=== PATIENT | male | born 1990 | race Caucasian/White ===

== ENCOUNTER 2020-11-25 14:52 | Emergency (ER) | payer OTHER ==
[~2020-11-25] VITALS: Ht 188 cm; Wt 108.9 kg
[2020-11-25 15:06] VITALS: BP 137/64
--- NOTE | 2020-11-25 15:16 | NUR ---
PT AMBULATED TO BED 6.
--- NOTE | 2020-11-25 15:18 | NUR ---
Patient ambulated to restroom with steady/even gait for urine sample.
--- NOTE | 2020-11-25 15:20 | NUR ---
EMT at bedside for EKG.
--- NOTE | 2020-11-25 15:35 | NUR ---
30 y/o M brought in by self from home with c/c chest pain x 3 hours. Patient states he drank 10 beers yesterday, and today at 1300, was watching TV when he began experiencing an acute onset of chest pain to his left pectoral region; pt rates pain initially at 10/10, burning/constant, non-radiating pain. Patient states he took 325 ASA 2 hours prior to arrival with relief. Upon assessment, patient denies any chest pain at this time; states it resolved on it's own. Pt denies N/V/D, abdominal pain, fever/chills, headache, dizziness, weakness, fatigue, cough, cold-like symptoms. Patient placed onto shelter monitor; EMT at bedside for EKG. Bed locked in lowest position, side rails x 1, call light in reach. PMH/Sx/Meds: Denies CARRIE
--- NOTE | 2020-11-25 15:48 | NUR ---
Patient is requesting to leave AMA; denies any medical complaints at this time.
--- NOTE | 2020-11-25 15:49 | NUR ---
PA made aware and is evaluating patient at bedside.
[2020-11-25 15:56] VITALS: BP 137/64
--- NOTE | 2020-11-25 15:56 | NUR ---
Patient discharged with v/s stable. Written and verbal after care instructions given and explained. Patient verbalized understanding. Ambulatory with steady gait. All questions addressed prior to discharge. Advised to follow up with PMD.
== END 2020-11-25 15:56 | disposition home or self-care (01) ==
LOC: MED 14:52 → EDBD 14:52 → MED 15:56
DX: F10.239 Alcohol dependence with withdrawal, unspecified (principal); R07.89 Other chest pain
CPT/HCPCS: 93005; 99283

== ENCOUNTER 2020-12-22 18:08 | Emergency (ER) | payer OTHER ==
[~2020-12-22] VITALS: Ht 188 cm; Wt 108.9 kg
[2020-12-22 18:14] VITALS: BP 146/116
--- NOTE | 2020-12-22 18:19 | NUR ---
AMBULATED TO BED 9
--- NOTE | 2020-12-22 18:24 | NUR ---
30/M PRESENTS TO ED WITH C/O HEADACHE X1 HOUR. PATIENT STATES HE WAS WATCHING TV WHEN THE HEADACHE STARTED, STATED HE TOOK ASPIRIN 1 HOUR AGO WITH MINIMAL RELIEF. PATIENT STATES HE TOOK METH YESTERDAY AND FEELS LIKE THE PAIN MIGHT BE RELATED TO IT. PATIENT IS ALERT AND ORIENTED X4, ANSWERING QUESTIONS APPROPRIATELY. PATIENT APPEARS ANXIOUS AND NERVOUS.
[2020-12-22] MEDS ORDERED: KETOROLAC 30 MG/ML VIAL IM ONE (18:25)
[2020-12-22] MEDS: NACL 0.9% 1,000 ML IV ONE (18:44)
[2020-12-22] MEDS: METOCLOPRAMIDE 10 MG/2 ML INJ VIAL IVP ONE (18:47)
--- NOTE | 2020-12-22 18:58 | NUR ---
PATIENT TAKEN TO CT VIA W/C
--- NOTE | 2020-12-22 19:15 | NUR ---
RECIVED REPORT FROM STACY PATHAK, CONTINUATION OF CARE. PATIENT A&O X4. PATIENT STATES," I FEEL A LOT BETTER, IT MIGHT HAVE JUST BEEN THE DRUGS." PATIENT STATES UNABLE TO PROVIDE UA SAMPLE AT THIS TIME. IV NO LONGER PATIENT. NO BLOOD RETURN NOTED. PATIENT DENIES PAIN AT THIS TIME. AWATING CT RESULTS.
[2020-12-22 19:41] LABS: BASOPHILS # (AUTO) 0.1 K/uL (0.00-0.22); BASOPHILS % (AUTO) 0.9 % (0.0-2.0); EOSINOPHILS # (AUTO) 0.2 K/uL (0-0.4); HEMATOCRIT 44.4 % (36-52); HEMOGLOBIN 14.9 g/dL (12.0-18.0); LYMPHOCYTES # (AUTO) 1.9 K/uL (2.0-11.5); LYMPHOCYTES % (AUTO) 22.7 % (20.5-51.1); MEAN CORPUSCULAR HEMOGLOBIN 31 pg (27-31); MEAN CORPUSCULAR HGB CONC 34 g/dL (33-37); MEAN CORPUSCULAR VOLUME 92.2 fL (80-94); MONOCYTES # (AUTO) 0.8 K/uL (0.8-1.0); MONOCYTES % (AUTO) 9.3 % (1.7-9.3); NEUTROPHILS # (AUTO) 5.5 K/uL (1.8-7.7); NEUTROPHILS % (AUTO) 65.1 % (42.2-75.2); PLATELET COUNT (AUTO) 256 K/uL (140-450); RED BLOOD CELL COUNT(AUTO) 4.81 MIL/uL (4.20-6.10); RED CELL DISTRIBUTION WIDTH 12.9 % (11.6-13.7); WHITE BLOOD COUNT (AUTO) 8.5 K/uL (4.8-10.8)
--- NOTE | 2020-12-22 19:50 | NUR ---
PATIENT AMBUALTED FROM RESTROOM TO BED WITH STEADY GAIT. UA SAMPLE COLLECTED AND GIVEN TO GLASS MELT OPERATOR JENNIFER.
[2020-12-22 20:00] LABS: ALBUMIN 4.2 g/dL (3.4-5.0); ANION GAP 12.4 (8-16); CARBON DIOXIDE 29.3 mmol/L (21-32); POTASSIUM 3.7 mmol/L (3.5-5.1); TOTAL BILIRUBIN 0.6 mg/dL (0.0-1.0)
--- NOTE | 2020-12-22 20:00 | NUR ---
IV removed, catheter intact and site benign. Applied folded 4x4 gauze and tape to stop bleeding.
--- NOTE | 2020-12-22 20:25 | NUR ---
Patient appears to be resting comfortably in bed. Vital Signs within normal limits. Respirations even and unlabored. Patient states, "I feel better now I think I was just anxious before." No pain at IV site.
[2020-12-22 20:31] LABS: BARBITURATE, URINE NEGATIVE ng/ml (NEG <=200); BENZODIAZEPINE, URINE NEGATIVE ng/mL (NEG <=200); CANNABINOID, URINE NEGATIVE ng/mL (NEG <=50); COCAINE, URINE NEGATIVE ng/mL (NEG <=300); OPIATE, URINE NEGATIVE ng/mL (NEG <=2000); PHENCYCLIDINE SCREEN,URINE NEGATIVE ng/mL (NEG <=25)
--- NOTE | 2020-12-22 21:00 | NUR ---
Haley suazo in ED - 12/22/20 at 2117 by [email or web address] IV removed, catheter intact and site benign. Applied folded 4x4 gauze and tape to stop bleeding.
[2020-12-22 21:02] VITALS: BP 138/76
== END 2020-12-22 21:02 | disposition home or self-care (01) ==
LOC: MED 18:08
DX: R51.9 Headache, unspecified (principal); R07.9 Chest pain, unspecified; R74.01 Elevation of levels of liver transaminase levels; F10.10 Alcohol abuse, uncomplicated; F15.90 Other stimulant use, unspecified, uncomplicated
CPT/HCPCS: 36415; 70450; 80053; 80305; 84484; 85025; 93005; 96361; 96374; 99285; J2765; J7030; J1885

== ENCOUNTER 2021-06-03 17:48 | Emergency (ER) | payer OTHER ==
[~2021-06-03] VITALS: Ht 188 cm; Wt 104.3 kg
[2021-06-03 17:52] VITALS: BP 149/70
--- NOTE | 2021-06-03 18:00 | NUR ---
PT AMBULATED TO BED 11.
--- NOTE | 2021-06-03 18:10 | NUR ---
31 Y/O MALE C/O INTERMITENT LLQ ABDOMINAL PAIN X 4 DAYS. PT DENIES NAUSEA/VOMITING/DIAHHREA. PT REPORTS THAT PAIN IS WORSE AFTER EATING AND WHEN LAYING DOWN. PT REPORTS THIS HAPPENED X7 MONTHS AGO AND WAS DIAGNOSED WITH GASTRITIS. PT A/O X4 WITH EVEN AND UNLABORED RESPIRATIONS. PMH: DENIES NKDA
--- NOTE | 2021-06-03 18:14 | NUR ---
DR QUINN AT BEDSIDE EVALUATING PT
[2021-06-03] MEDS ORDERED: DICYCLOMINE HCL LIQUID 20 MG, ALUMINUM HYD/MAG/SIMETHICONE 30 ML, LIDOCAINE VISCOUS 2% ... PO ONE ×3 (18:20)
[2021-06-03] MEDS ORDERED: DICYCLOMINE HCL LIQUID 10 MG/5 ML UDC ONE (18:21)
[2021-06-03] MEDS ORDERED: ALUMINUM HYD/MAG/SIMETHICONE 30 ML UDC ONE (18:21)
--- NOTE | 2021-06-03 18:29 | NUR ---
LAB AT BEDSIDE
[2021-06-03 18:37] LABS: BASOPHILS # (AUTO) 0.1 K/uL (0.00-0.22); BASOPHILS % (AUTO) 0.8 % (0.0-2.0); EOSINOPHILS # (AUTO) 0.5 K/uL (0-0.4); EOSINOPHILS % (AUTO) 5.7 % (0.0-4.0); HEMOGLOBIN 16.1 g/dL (12.0-18.0); LYMPHOCYTES # (AUTO) 2.1 K/uL (2.0-11.5); LYMPHOCYTES % (AUTO) 23.5 % (20.5-51.1); MEAN CORPUSCULAR HEMOGLOBIN 32 pg (27-31); MEAN CORPUSCULAR HGB CONC 34 g/dL (33-37); MEAN CORPUSCULAR VOLUME 94.9 fL (80-94); MONOCYTES # (AUTO) 0.7 K/uL (0.8-1.0); MONOCYTES % (AUTO) 7.7 % (1.7-9.3); NEUTROPHILS # (AUTO) 5.7 K/uL (1.8-7.7); NEUTROPHILS % (AUTO) 62.3 % (42.2-75.2); PLATELET COUNT (AUTO) 259 K/uL (140-450); RED BLOOD CELL COUNT(AUTO) 5.06 MIL/uL (4.20-6.10); RED CELL DISTRIBUTION WIDTH 12.8 % (11.6-13.7); WHITE BLOOD COUNT (AUTO) 9.1 K/uL (4.8-10.8)
[2021-06-03 18:58] LABS: ANION GAP 11.7 (8-16); CREATININE 1.1 mg/dL (0.6-1.3); POTASSIUM 3.7 mmol/L (3.5-5.1); TOTAL BILIRUBIN 0.3 mg/dL (0.0-1.0)
--- NOTE | 2021-06-03 19:14 | NUR ---
RECEIVED REPORT FROM DELIO FOR CONTINUITY OF CARE
--- NOTE | 2021-06-03 19:14 | NUR ---
REPORT GIVEN TO CASSIDY RN, TRANSFER OF CARE AT THIS TIME
[2021-06-03] MEDS ORDERED: SUCR1TAB35 PO (19:22)
[2021-06-03] MEDS ORDERED: OMEP20EC11 PO (19:22)
[2021-06-03 19:39] VITALS: BP 149/70
--- NOTE | 2021-06-03 19:39 | NUR ---
Patient discharged with v/s stable. Written and verbal after care instructions given and explained. Patient alert, oriented and verbalized understanding of instructions. Ambulatory with steady gait. All questions addressed prior to discharge. ID band removed. Patient advised to follow up with PMD. Rx of Prilosec and carafate given. Patient educated on indication of medication including possible reaction and side effects. Opportunity to ask questions provided and answered.
== END 2021-06-03 19:39 | disposition home or self-care (01) ==
LOC: MED 17:48
DX: R10.9 Unspecified abdominal pain (principal); Z79.899 Other long term (current) drug therapy
CPT/HCPCS: 36415; 80053; 81002; 83690; 85025; 99283

== ENCOUNTER 2021-06-19 08:47 | Emergency (ER) | payer OTHER ==
[~2021-06-19] VITALS: Ht 188 cm; Wt 109.3 kg
[~2021-06-19 08:47] MED LIST: OMEP20EC11 PO; SUCR1TAB35 PO
[2021-06-19 08:54] VITALS: BP 117/87
[2021-06-19] MEDS ORDERED: ONDANSETRON 4 MG ODT PO ONE (09:20)
[2021-06-19] MEDS ORDERED: KETOROLAC 30 MG/ML VIAL IM ONE (09:20)
[2021-06-19 09:53] LABS: BASOPHILS # (AUTO) 0.1 K/uL (0.00-0.22); BASOPHILS % (AUTO) 1.2 % (0.0-2.0); EOSINOPHILS # (AUTO) 0.3 K/uL (0-0.4); EOSINOPHILS % (AUTO) 5.9 % (0.0-4.0); HEMOGLOBIN 15.4 g/dL (12.0-18.0); LYMPHOCYTES # (AUTO) 1.4 K/uL (2.0-11.5); LYMPHOCYTES % (AUTO) 30.6 % (20.5-51.1); MEAN CORPUSCULAR HEMOGLOBIN 32 pg (27-31); MEAN CORPUSCULAR HGB CONC 34 g/dL (33-37); MEAN CORPUSCULAR VOLUME 93.2 fL (80-94); MONOCYTES # (AUTO) 0.3 K/uL (0.8-1.0); MONOCYTES % (AUTO) 6.5 % (1.7-9.3); NEUTROPHILS # (AUTO) 2.6 K/uL (1.8-7.7); NEUTROPHILS % (AUTO) 55.8 % (42.2-75.2); PLATELET COUNT (AUTO) 247 K/uL (140-450); RED BLOOD CELL COUNT(AUTO) 4.83 MIL/uL (4.20-6.10); RED CELL DISTRIBUTION WIDTH 12.8 % (11.6-13.7); WHITE BLOOD COUNT (AUTO) 4.7 K/uL (4.8-10.8)
[2021-06-19 10:03] LABS: APPEARANCE,URINE CLEAR (CLEAR); BILIRUBIN,URINE NEGATIVE (NEGATIVE); BLOOD, URINE NEGATIVE (NEGATIVE); COLOR,URINE YELLOW (YELLOW); LEUKOCYTE ESTERASE ,URINE NEGATIVE (NEGATIVE); NITRITE, URINE NEGATIVE (NEGATIVE); PH,URINE 6.5 (5.0-9.0); UGLUCOSE NEGATIVE (NEGATIVE)
[2021-06-19 10:10] LABS: ALBUMIN 4.2 g/dL (3.4-5.0); ANION GAP 10.3 (8-16); POTASSIUM 4.3 mmol/L (3.5-5.1); TOTAL BILIRUBIN 0.4 mg/dL (0.0-1.0)
== END 2021-06-19 10:50 | disposition home or self-care (01) ==
LOC: MED 08:47
DX: R10.32 Left lower quadrant pain (principal)
CPT/HCPCS: 36415; 74176; 80053; 81003; 83690; 85025; 96372; 99284; J1885; Q0162

== ENCOUNTER 2021-10-12 04:25 | Emergency (ER) | payer OTHER ==
[~2021-10-12] VITALS: Ht 188 cm; Wt 108.1 kg
[2021-10-12 04:32] VITALS: BP 141/81
--- NOTE | 2021-10-12 04:38 | NUR ---
PT TAKEN TO BED 2
--- NOTE | 2021-10-12 04:48 | NUR ---
Dr. Mcrea examining patient.
--- NOTE | 2021-10-12 04:54 | NUR ---
URINE TAKEN BY LAB
--- NOTE | 2021-10-12 04:56 | NUR ---
PT AMBULATED TO BATHROOM W STEADY GAIT.
[2021-10-12 05:05] LABS: APPEARANCE,URINE CLEAR (CLEAR); BILIRUBIN,URINE NEGATIVE (NEGATIVE); BLOOD, URINE NEGATIVE (NEGATIVE); COLOR,URINE YELLOW (YELLOW); LEUKOCYTE ESTERASE ,URINE NEGATIVE (NEGATIVE); NITRITE, URINE NEGATIVE (NEGATIVE); UGLUCOSE NEGATIVE (NEGATIVE)
--- NOTE | 2021-10-12 05:38 | NUR ---
LIDODERM PATCH APPLIED, EDUCATED PT ON REMOVAL IN 12 HOURS.
[2021-10-12] MEDS: LIDOCAINE 5% 1 EA PATCH TP ONE (05:39)
[2021-10-12] MEDS: KETOROLAC 30 MG/ML VIAL IM ONE (05:40)
[2021-10-12] MEDS ORDERED: LID5T TP (05:44)
[2021-10-12] MEDS ORDERED: ALUM355S59 PO (05:44)
[2021-10-12] MEDS ORDERED: IBUP-2213 PO (05:44)
--- NOTE | 2021-10-12 06:09 | NUR ---
Note undone in EDM - 10/12/21 at 0610 by SILVANO Patient to be transferred to [facility]. Is being transferred due to INSURANCE REQUEST. Receiving facility has accepting physician and available space. ER physician has signed transfer form. Patient or responsible constitution party has agreed to transfer and signed form. Patient belongings inventoried and will be sent with patient. Copy of nursing notes, lab reports, EKG, Physicians Orders and X-rays to be sent with patient. Report called to ALL, RN at receiving facility. [facility] ambulance service has been called for transfer. [facility] TRANSFERRING PT AT THIS TIME.
--- NOTE | 2021-10-12 06:21 | NUR ---
PT REPORTS L FLANK PAIN RESOLVED BUT HAS MOVED TO LOWER ABDOMINAL. PT HAS BEEN D/C BY ERMD, PT UNCOMFORTABLE W D/C D/T ONGOING L FLANK PAIN OVER THE PAST SEVERAL MONTHS. ARAVIND MADE AWARE, PARTHAD TO SEE PT.
--- NOTE | 2021-10-12 06:30 | NUR ---
ARAVIND SPOKE W PT. PT COMFORTABLE FOR D/C.
[2021-10-12] MEDS ORDERED: METH-1681 PO (06:36)
[2021-10-12 06:40] VITALS: BP 138/84
--- NOTE | 2021-10-12 06:40 | NUR ---
Patient discharged with v/s stable. Written and verbal after care instructions given and explained. Patient alert, oriented and verbalized understanding of instructions. Ambulatory with steady gait. All questions addressed prior to discharge. ID band removed. Patient advised to follow up with PMD. Rx of IBUPROFEN, LIDODERM, MAALOX given. Patient educated on indication of medication including possible reaction and side effects. Opportunity to ask questions provided and answered.
== END 2021-10-12 06:40 | disposition home or self-care (01) ==
LOC: MED 04:25
DX: G89.29 Other chronic pain (principal); R10.9 Unspecified abdominal pain; K21.9 Gastro-esophageal reflux disease without esophagitis; Z79.899 Other long term (current) drug therapy
CPT/HCPCS: 81003; 96372; 99283; J1885

== ENCOUNTER 2022-07-06 19:02 | Emergency (ER) | payer OTHER ==
[~2022-07-06] VITALS: Ht 188 cm; Wt 108.9 kg
[~2022-07-06 19:02] MED LIST changes: +ALUM355S59 PO; +IBUP-2213 PO; +LID5T TP; +METH-1681 PO
[2022-07-06 19:09] VITALS: BP 155/101
--- NOTE | 2022-07-06 19:34 | NUR ---
Dr. Liu at bedside examining pt.
--- NOTE | 2022-07-06 19:36 | NUR ---
Pt coming from home ambulatory with steady gait. Pt c/o having high blood pressure at home and now has a 8/10 headache that started x5 hours ago. Has no hx of high blood pressure. Pt is A&Ox4. Negative for dtroke symptoms. Speech clear. VSS. Skin intact. Pupils PERRLA. No chest pain and no sob. NKA. no known medical conditions. Bed in lowest position.
[2022-07-06 20:56] VITALS: BP 145/89
== END 2022-07-06 20:56 | disposition home or self-care (01) ==
LOC: MED 19:02
DX: I10 Essential (primary) hypertension (principal); Z79.899 Other long term (current) drug therapy
CPT/HCPCS: 99281

== ENCOUNTER 2023-07-01 12:20 | Emergency (ER) | payer OTHER ==
[~2023-07-01] VITALS: Ht 188 cm; Wt 117.0 kg
[2023-07-01 12:30] VITALS: BP 135/79; PULSE 77; RESP 20; TEMP 98.1; O2SAT 98
[2023-07-01] MEDS ORDERED: KETOROLAC 30 MG/ML VIAL IM ONE (15:00)
[2023-07-01] MEDS ORDERED: IBUP-2213 PO (15:50)
[2023-07-01 16:15] VITALS: BP 118/72; PULSE 72; RESP 16; TEMP 98; O2SAT 99
== END 2023-07-01 16:17 | disposition home or self-care (01) ==
LOC: MED 12:20
DX: R51.9 Headache, unspecified (principal); Z79.899 Other long term (current) drug therapy
CPT/HCPCS: 70450; 96372; 99285; J1885